=== PATIENT | female | born 1990 | race Two or more races ===

== ENCOUNTER 2018-03-11 17:38 | Emergency (ER) | payer OTHER ==
[2018-03-11 18:15] VITALS: BP 137/92
--- NOTE | 2018-03-11 18:41 | RADIOLOGY REPORT (SQ) ---
EXAM DESCRIPTION: FOOT RIGHT COMPLETE COMPLETED DATE/TIME: 03/11/2018 6:30 pm REASON FOR STUDY: foot pain, bruising and swelling COMPARISON: None. NUMBER OF VIEWS: Three views. TECHNIQUE: AP, lateral and oblique radiographic images acquired of the right foot. LIMITATIONS: None. FINDINGS: MINERALIZATION: Normal. BONES: No acute fracture or dislocation. No worrisome bone lesions. JOINTS: No effusions. SOFT TISSUES: No soft tissue swelling. No foreign body. OTHER: No other significant finding. IMPRESSION: NEGATIVE STUDY OF THE RIGHT FOOT. NO RADIOGRAPHIC EVIDENCE OF ACUTE INJURY. TECHNICAL DOCUMENTATION: JOB ID: [id number] [employer]- All Rights Reserved Reading location - IP/workstation name: [email or web address]
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
== END 2018-03-11 19:37 | disposition home or self-care (01) ==
LOC: ER 17:38
DX: S90.31XA Contusion of right foot, initial encounter (principal); M79.671 Pain in right foot; V89.2XXA Person injured in unspecified motor-vehicle accident, traffic, initial encounter
CPT/HCPCS: 99283